=== PATIENT | female | born 1970 | race Caucasian/White ===

== ENCOUNTER → 2025-03-11 06:45 | Outpatient (REF) | payer BC, SELFPAY | LOC: HWRAD 06:45 | PROVIDERS: ATTENDING PHYSICIAN Student in an Organized Health Care Education/Training Program | DX: R22.41 Localized swelling, mass and lump, right lower limb (principal) | CPT/HCPCS: 76882 ==

== ENCOUNTER → 2025-03-18 10:21 | Outpatient (REF) | payer BC, SELFPAY | LOC: WDC 10:21 | PROVIDERS: ATTENDING PHYSICIAN Student in an Organized Health Care Education/Training Program | DX: N63.11 Unspecified lump in the right breast, upper outer quadrant (principal) | CPT/HCPCS: 76642; 77062; 77066 ==